=== PATIENT | male | born 1955 | race Caucasian/White ===

== ENCOUNTER 2022-11-29 18:20 | Emergency (ER) | payer MEDICARE, BC, SELFPAY ==
--- NOTE | ~2022-11-29 | CT_ITS ---
EXAMINATION: CT abdomen pelvis w con DATE: 11/29/2022 22:41 INDICATION: Abdominal pain. Constipation. TECHNIQUE: Computed tomography (CT) of the abdomen and pelvis was performed with 100 mL Omnipaque 350 intravenous contrast. Automated exposure control and iterative reconstruction technique were employe d. The dose-length product was 1431.77 mGy-cm. COMPARISON: None. FINDINGS: The visualized portions of the lung bases demonstrate mild atelectasis. Calcified bilateral lung nodules are consistent with old granulomatous disease. No pleural effusion. The heart size is n ormal. No pericardial effusion. Calcifications in the liver and spleen are consistent with old granul omatous disease. The gallbladder, pancreas, and adrenal glands are normal. There is a 2 mm stone in r ight kidney. Left kidney is normal. The prostate is mildly enlarged. There is a left inguinal hernia containing fat. There are no dilated loops of bowel. There is a small volume of stool in the colon. T he appendix is normal. There is moderate lumbar spondylosis. IMPRESSION: 1. Left inguinal hernia containing fat. Reviewed, dictated and finalized at location A.
[2022-11-29 18:24] VITALS: BP 139/62; PULSE 78; RESP 14; TEMP 36.8; O2SAT 99
[2022-11-29 20:14] VITALS: PULSE 64; RESP 18; TEMP 37.1; O2SAT 98
[2022-11-29 20:15] VITALS: BP 132/68; O2SAT 98
[2022-11-29 21:11] VITALS: BP 122/64; O2SAT 97
[2022-11-29 21:58] LABS: Basophils Percent Auto 0.3 % (0.2-1.2); Eosinophils Absolute Auto 0.2 K/mm3 (0-0.3); Eosinophils Percent Auto 4.4 % (0-4.4); Hematocrit 40.5 % (42.0-52.0); Hemoglobin 13.3 g/dL (14.0-18.0); Immature Granulocyte Absolute 0.01 K/mm3 (0.00-0.031); Immature Granulocyte Percent A 0.3 % (0-0.5); Lymphocytes Absolute Auto 0.96 K/mm3 (0.9-3.2); Lymphocytes Percent Auto 28.2 % (18.3-44.2); Mean Corpuscular HGB Conc 32.8 g/dl (32-36); Mean Corpuscular Hemoglobin 31.5 pg (26-34); Mean Platelet Volume 9.5 fl (7.4-10.4); Monocytes Absolute Auto 0.4 K/mm3 (0.1-0.6); Monocytes Percent Auto 12.4 % (2.6-8.5); Neutrophils Absolute Auto 1.9 K/mm3 (1.3-6.7); Neutrophils Percent Auto 54.4 % (45.5-73.1); Platelet Count Result 118 k/mm3 (150-375); Red Blood Count 4.22 M/mm3 (4.6-6.20); Red Cell Distribution Width 12.8 % (11.5-14.5); White Blood Count 3.4 K/mm3 (4.5-10.0)
[2022-11-29 21:59] LABS: Appearance Urine Clear (Clear); Bilirubin Urine Negative (Negative); Blood Urine Negative (Negative); Color Urine Yellow (Yellow); Glucose Urine UA Negative (Negative); Ketones Urine Trace mg/dL (Negative); Leukocyte Esterase Ur Negative LEU/UL (Negative); Nitrate Urine Negative (Negative); Protein Urine Negative (Negative); pH Urine 6.5 (5.0-9.0)
[2022-11-29 22:10] LABS: Add Urine Microscopic? NO
[2022-11-29 22:11] LABS: Lactic Acid Reflex 0.6 mmol/L (0.7-2.0)
[2022-11-29 22:13] LABS: Alanine Aminotransferase 17 U/L (6-50); Albumin Level 3.9 g/dL (3.5-5.1); Alkaline Phosphatase 58 U/L (38-126); Anion Gap 5 mmol/L (8-16); Aspartate Amino Transferase 27 U/L (17-59); Bilirubin,Total 0.9 mg/dL (0.2-1.3); Blood Urea Nitrogen 17 mg/dL (9-20); Calcium 8.6 mg/dL (8.4-10.2); Carbon Dioxide 31 mmol/L (22-30); Chloride 101 mmol/L (98-107); Estimated CRCL calculation 99 ml/min; Estimated Glomerular Filt Rate > 60; Glucose 113 mg/dL (65-110); Lipase 123 U/L (23-300); Magnesium 2.1 mg/dL (1.6-2.3); Potassium 3.8 mmol/L (3.4-5.0); Sodium 137 mmol/L (137-145)
--- NOTE | 2022-11-30 01:37 | ED.GENADULT ---
HPI - General Adult General Chief complaint: Unspecified Stated complaint: constipation Time Seen by Provider: 11/29/22 20:47 History of Present Illness HPI narrative: Patient 67-year-old gentleman who presents the emergency department with chief complaint of abdominal pain. The patient reports that since the he has been having constipation has also had some generalized malaise and sinus congestion. Patient states that he is done multiple things to try to have a bowel movement still passing gas but reports that he is just not having a good satisfying bowel movement. Patient reports his generalized discomfort throughout his abdomen. Related Data Allergies Allergy/AdvReac Type Severity Reaction Status Date / Time No Known Allergies Allergy Verified 11/29/22 20:18 Review of Systems Review of Systems: A 10 system review of systems was completed on the patient and is negative except for what is stated in the HPI. Nursing and ancillary documentation was reviewed. Exam Narrative: GENERAL: Well-appearing, well-nourished, and in no acute distress. HEAD: Normocephalic, atraumatic. EYES: PERRLA and EOMI. ENT: Nares clear, no rhinorrhea or epistaxis. Mucous membranes moist. NECK: Supple. CHEST: Clear to auscultation. No respiratory distress. HEART: Regular rate and rhythm. No murmur heard. Normal peripheral pulses. ABDOMEN: Soft, diffusely tender to palpation, nondistended, normal active bowel sounds. EXTREMITIES: Normal range of motion. No edema. SKIN: Warm, dry, no rash. NEURO: No focal deficits. Alert and oriented x3. PSYCH: Normal mood and affect. Course Vital Signs Vital signs: Vital Signs Temperature 36.8 C 11/29/22 18:24 Pulse Rate 78 11/29/22 18:24 Respiratory Rate 14 11/29/22 18:24 Blood Pressure 139/62 11/29/22 18:24 Pulse Oximetry 99 11/29/22 18:24 Oxygen Delivery Room Air 11/29/22 18:24 Temperature 37.1 C 11/29/22 20:14 Pulse Rate 64 11/29/22 20:14 Respiratory Rate 18 11/29/22 20:14 Blood Pressure 122/64 11/29/22 21:11 Pulse Oximetry 97 11/29/22 21:11 Oxygen Delivery Room Air 11/29/22 18:24 Medical Decision Making MDM Narrative Medical decision making narrative: Differential diagnosis includes bowel obstruction, constipation, colitis, diverticulitis, viral syndrome. Laboratory studies were obtained which showed a white blood cell count of 3.4 hemoglobin was 13.3 electrolytes were within normal limits lactic acid was 0.6 liver enzymes were normal lipase was normal as well urinalysis that showed trace ketones no evidence of UTI. CT scan of the abdomen pelvis showed no acute abnormality no bowel obstruction no evidence of constipation. Vital Signs Vital Signs: Vital Signs Temperature 36.8 C 11/29/22 18:24 Pulse Rate 78 11/29/22 18:24 Respiratory Rate 14 11/29/22 18:24 Blood Pressure 139/62 11/29/22 18:24 Pulse Oximetry 99 11/29/22 18:24 Oxygen Delivery Room Air 11/29/22 18:24 Temperature 37.1 C 11/29/22 20:14 Pulse Rate 64 11/29/22 20:14 Respiratory Rate 18 11/29/22 20:14 Blood Pressure 122/64 11/29/22 21:11 Pulse Oximetry 97 11/29/22 21:11 Oxygen Delivery Room Air 11/29/22 18:24 Lab Data 11/29/22 21:51 11/29/22 21:51 Labs: Lab Results 11/29/22 Range/Units 21:51 WBC 3.4 L (4.5-10.0) K/mm3 RBC 4.22 L (4.6-6.20) M/mm3 Hgb 13.3 L (14.0-18.0) g/dL Hct 40.5 L (42.0-52.0) % MCV 96.0 (80-100) fl MCH 31.5 (26-34) pg MCHC 32.8 (32-36) g/dl RDW 12.8 (11.5-14.5) % Plt Count 118 L (150-375) k/mm3 MPV 9.5 (7.4-10.4) fl Immature Gran % (Auto) 0.3 (0-0.5) % Neut % (Auto) 54.4 (45.5-73.1) % Lymph % (Auto) 28.2 (18.3-44.2) % P[place] % (Auto) 12.4 H (2.6-8.5) % Eos % (Auto) 4.4 (0-4.4) % Baso % (Auto) 0.3 (0.2-1.2) % Lymph # (Auto) 0.96 (0.9-3.2) K/mm3 Pinal # (Auto) 0.4 (0.1-0.6) K/mm3 Eos # (Auto) 0.2 (0-
== END 2022-11-30 02:04 | disposition home or self-care (01) ==
PROVIDERS: Emergency Provider Emergency Medicine
DX: R10.84 Generalized abdominal pain (principal); K40.90 Unilateral inguinal hernia, without obstruction or gangrene, not specified as recurrent
CPT/HCPCS: 36415; 74177; 80053; 81003; 83605; 83690; 83735; 85025; 95864; 99284; Q9967

== ENCOUNTER 2023-05-04 08:57 | Outpatient (CLI) | payer MEDICARE, SELFPAY ==
--- NOTE | 2023-05-04 11:00 | NEURO_ITS ---
Impression: # Mildly non-insulin diabetic complains of numbness of hands. # Mild Carpal Tunnel Syndrome, left more than right. # No ulnar neuropathy. # Needle/EMG exam mildly neurogenic in left APB. Nerve Conduction Studies Anti Sensory Summary Table Stim Site NR Peak (ms) P-T Amp (?V) Site1 Site2 Delta-P (ms) Dist (cm) Jose (m/s) Left Median Anti Sensory (2-3nd Digit) Wrist 4.7 56.9 Wrist 2-3nd Digit 4.7 14.0 30 Wrist 4.8 10.7 Wrist 2-3nd Digit 4.7 14.0 30 Right Median Anti Sensory (2-3nd Digit) Wrist 3.6 45.3 Wrist 2-3nd Digit 3.6 14.0 39 Wrist 3.5 8.8 Wrist 2-3nd Digit 3.6 14.0 39 Left Radial Anti Sensory (Base 1st Digit) Wrist 3.0 23.7 Wrist Base 1st Digit 3.0 0.0 Right Radial Anti Sensory (Base 1st Digit) Wrist 2.4 12.2 Wrist Base 1st Digit 2.4 0.0 Left Ulnar Anti Sensory (5th Digit) Wrist 2.3 13.8 Wrist 5th Digit 2.3 14.0 61 Right Ulnar Anti Sensory (5th Digit) Wrist 2.6 12.1 Wrist 5th Digit 2.6 14.0 54 Motor Summary Table Stim Site NR Onset (ms) O-P Amp (mV) Site1 Site2 Delta-0 (ms) Dist (cm) Jose (m/s) Left Median Motor (Abd Poll Brev) Wrist 4.4 0.9 Elbow Wrist 5.9 30.0 51 Elbow 10.3 1.1 Right Median Motor (Abd Poll Brev) Wrist 4.0 1.5 Elbow Wrist 5.9 32.0 54 Elbow 9.9 2.7 Left Ulnar Motor (Abd Dig Minimi) Wrist 2.3 5.3 A Elbow Wrist 6.3 34.0 54 A Elbow 8.6 3.3 Right Ulnar Motor (Abd Dig Minimi) Wrist 2.3 5.9 A Elbow Wrist 6.4 34.0 53 A Elbow 8.7 4.3 F Wave Studies NR F-Lat (ms) L-R F-Lat (ms) Left Median (Mrkrs) (Abd Poll Brev) 29.59 0.58 Right Median (Mrkrs) (Abd Poll Brev) 30.18 0.58 Left Ulnar (Mrkrs) (Abd Dig Min) 30.70 0.47 Right Ulnar (Mrkrs) (Abd Dig Min) 30.23 0.47 EMG Side Muscle Nerve Root Ins Act Fibs Amp Dur Recrt Comment Right 1stDorInt Ulnar C8-T1 Nml Nml Nml Nml Nml Right Ext Indicis Radial (Post Int) C7-8 Nml Nml Nml Nml Nml Right Ext Digitorum Radial (Post Int) C7-8 Nml Nml Nml Nml Nml Right BrachioRad Radial C5-6 Nml Nml Nml Nml Nml Right PronatorTeres Median C6-7 Nml Nml Nml Nml Nml Right Abd Poll Brev Median C8-T1 Nml Nml Nml Nml Nml Left 1stDorInt Ulnar C8-T1 Nml Nml Nml Nml Nml Left Ext Indicis Radial (Post Int) C7-8 Nml Nml Nml Nml Nml Left Ext Digitorum Radial (Post Int) C7-8 Nml Nml Nml Nml Nml Left BrachioRad Radial C5-6 Nml Nml Nml Nml Nml Left PronatorTeres Median C6-7 Nml Nml Nml Nml Nml Left Abd Poll Brev Median C8-T1 Nml Nml Nml >12ms Reduced MTDD
== END 2023-05-04 08:58 | disposition home or self-care (01) ==
LOC: ANHNEURO 08:57
PROVIDERS: PCP Family Medicine; Visit Provider Family Medicine
DX: G56.03 Carpal tunnel syndrome, bilateral upper limbs (principal); R20.0 Anesthesia of skin
CPT/HCPCS: 95886; 95911

== ENCOUNTER 2023-05-21 10:00 | Outpatient (RCR) | payer MEDICARE, BC, SELFPAY ==
--- NOTE | 2023-04-14 14:39 | OPREHPOC ---
Outpatient Therapy Plan of Care This is a Multidisciplinary Plan of Care that may contain components documented by all disciplines (PT, OT, and ST.) PT Problem 1 PT Problem #1 Knowledge Deficit PT Goal 1 Goal 1* indep with HEP PT Problem 2 PT Problem #2 Pain PT Goal 1 Goal 1* pt report pain L shoulder at worst of 2/10 2* pt report NO numbness of L hand 3* Quick DASH self assessment of 10% limitation in activity PT Problem 3 PT Problem #3 Impaired Flexibility PT Goal 1 Goal increase flexibility of L shoulder, to improve posture and positioning of GH joint: 1* active IR-reach behind back, palm to waist 2*increase anterior shoulder/pec length: standing with back to wall- mid L GH joint to wall distance of 4 & 1/2 PT Problem 4 PT Problem #4 Impaired Strength PT Goal 1 Goal increase L scapular-thoracic strength to improve position of GH joint: 1* pt perform 20 reps of standing and mat strengthening exercises 2* pt maintain good shoulder position with exercises
--- NOTE | 2023-04-14 14:39 | PTOPEVAL1 ---
Assessment and note entered by Anju Perales, PT Evaluation Information Assessment Status Evaluation Diagnosis L shoulder pain Onset about 1 year Subjective Information gradual increase in shoulder pain, about 2 months ago new L hand numbness; L handed; no testing or imaging to shoulder; ACTIVITY: retired; recently moved to this area; active lifestyle; Reported Pain Level Pain Score Self Report Additional Pain Score Comments pain range in the past week 1-4/10; numbness of entire hand ~ 10% day; anterior and posterior shoulder pain--achy feeling; is L handed. increase pain: use of L arm, lifting decrease pain: rest/not use arm is not taking any pain meds for shoulder; is not using heat/ice- instruct on PRN use 10-15 min; sleeping is generally ok; Assessment PT Clinical Summary Juan R has the diagnosis of L shoulder pain. He reports gradual increase in pain and recently L hand numbness. Self assessment Quick DASH score of 20% limitation in activity level. He is able to perform all of his usual tasks, with pain increase and sleeping is OK. 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 Skilled PT services are indicated for treatment of shoulder impingement syndrome L, with modalities to decrease pain, therapeutic exercises to increase flexibility and strength of scapula/ thoracic musculature with education for home exercises and posture correction. Monitor neck pain. Plan of Care Interventions Electrical Stimulation,Hot Pack/Cold Pack,Manual Therapy,Neuro Re-education,Patient Education,Therapeutic Activities,Therapeutic Exercise,Ultrasound,Other Other Interventions taping, IASTM, dry needling PT Services Indicated Yes Treatment Frequency and 1-2x/ wk for 5 weeks Duration These treatments will address the objective and functional d
--- NOTE | 2023-04-14 14:40 | PCPTNOTE ---
during evaluation today, pt reports he will be out of town from Apr 20-.
--- NOTE | 2023-04-14 14:45 | OPREHPOC ---
Outpatient Therapy Plan of Care This is a Multidisciplinary Plan of Care that may contain components documented by all disciplines (PT, OT, and ST.) PT Problem 1 PT Problem #1 Knowledge Deficit PT Goal 1 Goal 1* indep with HEP PT Problem 2 PT Problem #2 Pain PT Goal 1 Goal 1* pt report pain L shoulder at worst of 2/10 2* pt report NO numbness of L hand 3* Quick DASH self assessment of 10% limitation in activity PT Problem 3 PT Problem #3 Impaired Flexibility PT Goal 1 Goal increase flexiblity of L shoulder, to improve posture and positioning of GH joint: 1* active IR-reach behind back, palm to waist 2*increase anterior shoulder/pec length: standing with back to wall- mid L GH joint to wall distance of 4 & 1/2 PT Problem 4 PT Problem #4 Impaired Strength PT Goal 1 Goal increase L scapular-thoracic strength to improve position of GH joint: 1* pt perform 20 reps of standing and mat strengthening exercises 2* pt maintain good shoulder position with exercises
--- NOTE | 2023-04-14 14:45 | PTOPEVAL1 ---
Assessment and note entered by Anju Perales, PT Evaluation Information Assessment Status Evaluation Diagnosis L shoulder pain Onset about 1 year Subjective Information gradual increase in shoulder pain, about 2 months ago new L hand numbness; L handed; no testing or imaging to shoulder; ACTIVITY: retired; recently moved to this area; active lifestyle; Reported Pain Level Pain Score 1: Self Report Additional Pain Score Comments pain range in the past week 1-4/10; numbness of entire hand ~ 10% day; anterior and posterior shoulder pain--achy feeling; is L handed. increase pain: use of L arm, lifting decrease pain: rest/not use arm is not taking any pain meds for shoulder; is not using heat/ice- instruct on PRN use 10-15 min; sleeping is generally ok; Assessment PT Clinical Summary Juan R has the diagnosis of L shoulder pain. He reports gradual increase in pain and recently L hand numbness. Self assessment Quick DASH score of 20% limitation in activity level. He is able to perform all of his usual tasks, with pain increase and sleeping is OK. 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 Skilled PT services are indicated for treatment of shoulder impingement syndrome L, with modalities to decrease pain, therapeutic exercises to increase flexibility and strength of scapula/ thoracic musculature with education for home exercises and posture correction. Plan of Care Interventions Electrical Stimulation,Hot Pack/Cold Pack,Manual Therapy,Neuro Re-education,Patient Education,Therapeutic Activities,Therapeutic Exercise,Ultrasound,Other Other Interventions taping, IASTM, dry needling PT Services Indicated Yes Treatment Frequency and 1-2x/ wk for 5 weeks Duration These treatments will address the objective and functional deficits as d
--- NOTE | 2023-05-21 10:47 | PTOPDC ---
Assessment and note entered by Anju Perales, PT Evaluation Information Assessment Status Discharge Diagnosis L shoulder pain Onset about 1 year Subjective Information numbness is less in L hand; little better with flexibility of shoulder; Reported Pain Level Pain Score Self Report Additional Pain Score Comments pt report pain range of 0-2/10 in the past week of shoulder; L whole hand numb about one hour total /day; L top of shoulder, upper traps is achy; is doing everything at home; Assessment PT Clinical Summary Juan R has received 8 PT sessions. Compared to the initial evaluation: pain range from 1-4/10 to 0-2/10; less numbness in L hand; Quick DASH self assessment from 20% to 14% limitation in activity level; increase L shoulder IR active ROM & wall standing distance mid GH to wall/improved positioning; increase strength of L shoulder- scapula complex; education completed for HEP and posture. The goals were partially met. Discharge PT services. He is to continue with his HEP. Plan of Care PT Services Indicated No
== END 2023-05-25 07:16 | disposition home or self-care (01) ==
LOC: ANHPT 10:00
PROVIDERS: PCP Family Medicine; Visit Provider Family Medicine
DX: M25.512 Pain in left shoulder (principal)
CPT/HCPCS: 97110; 97112; 97161; 97530

== ENCOUNTER 2023-05-25 01:50 | Day surgery (SDC) | payer MEDICARE, SELFPAY ==
--- NOTE | 2023-05-21 10:22 | SUR.PREOP ---
Patient called regarding upcoming procedure. Reviewed preop instructions, appointment times, and procedure prep.
[2023-05-21 13:21] VITALS: BMI 37.0
[2023-05-25 10:21] VITALS: BP 177/77; PULSE 65; RESP 17; TEMP 36.2; O2SAT 98; BMI 38.5
[2023-05-25] MEDS: LACTATED RINGERS 1,000 ML 150 ML IV CONT (10:24)
--- NOTE | 2023-05-25 10:33 | WPDANESEPPF ---
Anes - Initial Pre Proc Eval Procedure: Operation Date: 05/25/23 11:30 Proposed Procedures p Colonoscopy - Solis Plummer MD Date/Time: 05/25/23 10:33 Surgeon: Solis Plummer MD Pre Op Diagnosis: hx colon polyps Patient Data Age: 67 Gender: M Height: 1.85 m Weight: 132.7 kg Last Vital Signs Temp 97.2 F L 05/25/23 10:21 Pulse 65 05/25/23 10:21 Resp 17 05/25/23 10:21 BP 177/77 H 05/25/23 10:21 Pulse Ox 98 05/25/23 10:21 O2 Del Method Room Air 05/25/23 10:21 Allergies Allergy/AdvReac Type Severity Reaction Status Date / Time No Known Allergies Allergy Verified 05/25/23 10:18 Home Medications Medication Instructions Recorded Confirmed Type dicyclomine 20 mg tablet 20 mg PO QID PRN abdominal 11/30/22 05/25/23 Rx discomfort #20 tabs atorvastatin 20 mg tablet 20 mg PO DAILY #90 tabs 03/30/23 05/25/23 Rx losartan 25 mg tablet 25 mg PO DAILY #90 tabs 03/30/23 05/25/23 Rx sildenafil 100 mg tablet 100 mg PO DAILY PRN sexual 03/30/23 05/25/23 Rx activity #30 tabs tamsulosin 0.4 mg capsule 0.4 mg PO DAILY #90 caps 03/30/23 05/25/23 Rx tiotropium bromide 1.25 2 puff inhalation DAILY 03/30/23 05/25/23 History mcg/actuation mist for inhalation (Spiriva Respimat) One-A-Day Men's 50 Plus 1 tab-cap PO DAILY 05/21/23 05/25/23 History docusate sodium 50 mg capsule 50 mg PO DAILY 05/21/23 05/25/23 History Patient hx anesthesia problems: none Family hx anesthesia problems: none Results Review: All pre-operative results and documents have been reviewed as part of the pre-operative evaluation. [facility], [facility] Past Medical History Medical History (Updated 04/06/23 @ 22:33 by Wayne Angeles MD) BMI 40.0-44.9, adult Changing skin lesion Colon polyp COPD (chronic obstructive pulmonary disease) Diastasis recti Erectile dysfunction Essential hypertension Hemorrhoids Left ankle swelling Mixed hyperlipidemia Nasal bone fx-closed Numbness of left hand Onychomycosis ISMAEL (obstructive sleep apnea) Shoulder pain, left Family History Family History Father Rheumatic fever Scarlet fever Alcoholism Mother Heart disease Sibling Alcoholism Tobacco abuse Heart disease Social History Social History Smoking status: Never smoker Second hand tobacco smoke exposure: Yes Alcohol intake: current Substance use: former Substance use type: does not use Lack of Transportation: No Lack of Food: Never True Current Housing: I Have Housing Concerned About Future Housing: No Difficulty Paying Gas/Electric Bills: No Difficulty Paying for Meds: No Currently Unemployed: No Education: Bachelor's Degree Difficulty w/ Childcare or Family Care: No Living arrangements: with family 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 Informed Consent: The patient's anesthetic plan and its attendant risks and benefits were discussed with the patient/family/POA. Questions were solicited and answers provided to the satisfaction of the patient/family/POA.
--- NOTE | 2023-05-25 10:59 | PM.HPGS ---
History of Present Illness History of Present Illness Consent: Risks, benefits, and alternatives have been discussed and questions answered. Patient agrees to proceed with procedure. Chief complaint: hx colon polyps Narrative: Travis Boggs is a 67 year old male here for history of colon polyps, last colonoscopy about 6 years ago Review of Systems Constitutional: Constitutional: Denies headache(s) and Denies weakness Eyes: Eyes: Denies blurry vision ENT: Reports Normal hearing present, Denies headache(s) and Denies neck pain Cardiovascular: Cardiovascular: Denies chest pain and Denies dyspnea Respiratory: Respiratory: Denies dyspnea Gastrointestinal: Gastrointestinal: Reports no additional gastrointestinal complaints Genitourinary: Genitourinary: Denies dysuria Musculoskeletal: Musculoskeletal: Denies neck pain Integumentary/Breasts: Skin/Breast: Denies dry skin Neurologic: Reports Normal hearing present, Denies headache(s) and Denies weakness Psychiatric: Psychiatric: Denies anxiety Endocrine: Endocrine: Denies change in body appearance Hematologic/Lymphatic: Hematologic/Lymphatic: Denies easy bleeding Allergic/Immunologic: Allergic/Immunologic: Denies urticaria PMFSH Past Medical History Medical History (Updated 04/06/23 @ 22:33 by Wayne Angeles MD) BMI 40.0-44.9, adult Changing skin lesion Colon polyp COPD (chronic obstructive pulmonary disease) Diastasis recti Erectile dysfunction Essential hypertension Hemorrhoids Left ankle swelling Mixed hyperlipidemia Nasal bone fx-closed Numbness of left hand Onychomycosis ISMAEL (obstructive sleep apnea) Shoulder pain, left Family History Family History Father Rheumatic fever Scarlet fever Alcoholism Mother Heart disease Sibling Alcoholism Tobacco abuse Heart disease Social History Social History Smoking status: Never smoker Second hand tobacco smoke exposure: Yes Alcohol intake: current Substance use: former Substance use type: does not use Lack of Transportation: No Lack of Food: Never True Current Housing: I Have Housing Concerned About Future Housing: No Difficulty Paying Gas/Electric Bills: No Difficulty Paying for Meds: No Currently Unemployed: No Education: Bachelor's Degree Difficulty w/ Childcare or Family Care: No Living arrangements: with family 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 Gender identity (if verbalized by the patient): Male Spiritual care concerns: No Meds Home Medications and Allergies Home Medications Medication Instructions Recorded Confirmed Type dicyclomine 20 mg tablet 20 mg PO QID PRN abdominal 11/30/22 05/25/23 Rx discomfort #20 tabs atorvastatin 20 mg tablet 20 mg PO DAILY #90 tabs 03/30/23 05/25/23 Rx losartan 25 mg tablet 25 mg PO DAILY #90 tabs 03/30/23 05/25/23 Rx sildenafil 100 mg tablet 100 mg PO DAILY PRN sexual 03/30/23 05/25/23 Rx activity #30 tabs tamsulosin 0.4 mg capsule 0.4 mg PO DAILY #90 caps 03/30/23 05/25/23 Rx tiotropium bromide 1.25 2 puff inhalation DAILY 03/30/23 05/25/23 History mcg/actuation mist for inhalation (Spiriva Respimat) One-A-Day Men's 50 Plus 1 tab-cap PO DAILY 05/21/23 05/25/23 History docusate sodium 50 mg capsule 50 mg PO DAILY 05/21/23 05/25/23 History Allergies Allergy/AdvReac Type Severity Reaction Status Date / Time No Known Allergies Allergy Verified 05/25/23 10:18 Vital Signs Vital Signs - 24 hr 05/25/23 10:21 Temperature 97.2 F L Pulse Rate 65 Respiratory Rate 17 Blood Pressure 177/77 H Pulse Oximetry 98 Oxygen Delivery Room Air Exam Const: General: comfortable and no acute distress HENMT: Face/Nose/Sinus: Normal nares present Eyes: General: appearance normal, both eyes
[2023-05-25 11:17] VITALS: BP 111/60; PULSE 63; RESP 22; O2SAT 95
[2023-05-25 11:27] VITALS: BP 120/71; PULSE 64; RESP 19; O2SAT 95
[2023-05-25 11:37] VITALS: BP 130/76; PULSE 66; RESP 21; O2SAT 96
== END 2023-05-25 11:46 | disposition home or self-care (01) ==
PROVIDERS: PCP Family Medicine; Visit Provider Internal Medicine Gastroenterology
PROC: 0DJD8ZZ Inspection of Lower Intestinal Tract, Via Natural or Artificial Opening Endoscopic (ICD-10-PCS; CPT 45378; principal; 2023-05-25 11:30)
DX: Z12.11 Encounter for screening for malignant neoplasm of colon (principal); Z86.010 Personal history of colon polyps; J44.9 Chronic obstructive pulmonary disease, unspecified; I10 Essential (primary) hypertension; E78.2 Mixed hyperlipidemia; G47.33 Obstructive sleep apnea (adult) (pediatric); Z79.51 Long term (current) use of inhaled steroids
CPT/HCPCS: G0105; J2704; J7120

== ENCOUNTER 2023-08-05 09:00 | Outpatient (CLI) | payer MEDICARE, SELFPAY ==
--- NOTE | 2023-08-05 14:16 | WPDPFTINT ---
PFT Procedure Performed PFT Procedure Performed Spirometry with Pre/Post Bronchodilator Plethysmography (Lung Vol) Diffusing Cap (DLCO) Flow Vol Loop PFT Interpretation Lung volumes were measured with the body plethysmography method. Lung volumes are unremarkable. Spirometry showed normal expiratory flow rates and a normal FEV1 to FVC ratio 70%. Following administration of a bronchodilator there was significant increase in the FEV1. Lung diffusion capacity is within the normal range at 100% predicted. The flow volume loop is unremarkable. Impression: Spirometry, lung volumes, and lung diffusion capacity all within the normal range.
--- NOTE | 2023-08-05 14:18 | WPDSIXMINUTE ---
Six Minute Walk Procedure Procedure Performed Pulmonary Stress Test (6 min walk) Six Minute Walk Six Minute Walk: This 6 minute walk test was carried out with the patient breathing room air. The baseline oxyhemoglobin saturation was 97%. The patient walked 609 m with no stops during testing. During the walk the oxyhemoglobin saturation remained in the range of 94% to 97%. Impression: No evidence of oxyhemoglobin desaturation on this testing.
== END 2023-08-05 09:01 | disposition home or self-care (01) ==
LOC: ANHPFT 09:01
PROVIDERS: PCP Family Medicine; Visit Provider Physician Assistant
DX: R06.09 Other forms of dyspnea (principal)
CPT/HCPCS: 94060; 94618; 94726; 94729

== ENCOUNTER 2023-09-29 13:25 | Outpatient (CLI) | payer MEDICARE, SELFPAY ==
--- NOTE | 2023-09-29 13:29 | ECHO_ITS ---
Patient Info Name: Travis Boggs Age: 68 years : 1955 Gender: Male Ht: 73 in Wt: 295 lbs BSA: 2.68 m2 HR: 73 bpm BP: 140 / 73 mmHg Technical Quality: Good Exam Date: 09/29/2023 1:40 PM Exam Location: Echo Lab Patient Status: Outpatient Admit Date: 09/29/2023 Staff Ordering Physician: Willow Diaz PA-C Condenser Operator: Emily Garay RDCS Attending Provider: Willow Diaz PA-C Exam Type: CA echo doppler color flow Study Info Indications R06.09 - Other forms of dyspnea Complete two-dimensional, color flow and Doppler transthoracic echocardiogram is performed. Summary 1. Complete two-dimensional, color flow and Doppler transthoracic echocardiogram is performed. 2. Left ventricular chamber dimension is normal. 3. Left ventricular systolic function is normal, estimated at 65-70%. 4. The left ventricular diastolic function is grade III diastolic dysfunction. 5. E/e' 14 is mildly elevated. 6. There is mild aortic valve sclerosis. 7. No pulmonary hypertension, estimated pulmonary arterial systolic pressure is 24 mmHg. Left Ventricle E/e' 14 is mildly elevated. Left ventricular chamber dimension is normal. Left ventricular systolic function is normal, estimated at 65-70%. The left ventricular diastolic function is grade III diastolic dysfunction. Right Ventricle Right ventricular systolic function is normal and with normal TAPSE 2.7 cm. Right ventricular chamber dimension is normal. Left Atria Left atrial chamber dimension is normal. Right Atria Right atrial chamber dimension is normal. Aortic Valve The aortic valve is trileaflet. There is mild aortic valve sclerosis. There is no aortic valve stenosis. There is no aortic valve regurgitation. Pulmonic Valve There is no pulmonic regurgitation. Mitral Valve There is no mitral valve stenosis. There is no mitral valve regurgitation. Tricuspid Valve There is no tricuspid valve regurgitation. No pulmonary hypertension, estimated pulmonary arterial systolic pressure is 24 mmHg. Pericardium/Pleural There is no pericardial effusion. Inferior Vena Cava Normal inferior vena cava with >50% collapse upon inspiration consistent with normal right atrial pressure, 5 mmHg. Aorta The aortic root size at the sinus of Valsalva is normal. Left Ventricular Outflow Tract Name Value Normal LVOT 2D LVOT Diameter 2.0 cm LVOT Doppler LVOT Peak Gradient 5 mmHg LVOT Mean Gradient 3 mmHg LVOT VTI 24 cm LVOT VTI/AV VTI Ratio 0.7 LVOT Stroke Volume 73 ml LVOT CO 4.9 l/min LVOT CI 1.8 l/min/m2 Pulmonic Valve Name Value Normal RVOT Doppler RVOT Peak Gradient 3 mmHg PV Doppler
== END 2023-09-29 13:26 | disposition home or self-care (01) ==
LOC: ANHCARD 13:26
PROVIDERS: PCP Family Medicine; Visit Provider Physician Assistant
DX: R06.09 Other forms of dyspnea (principal); I35.8 Other nonrheumatic aortic valve disorders
CPT/HCPCS: 93306

== ENCOUNTER 2024-03-06 14:01 | Outpatient (CLI) | payer MEDICARE, SELFPAY ==
--- NOTE | ~2024-03-06 | XR_ITS ---
Clinical Indication: Bronchitis PA and lateral views of the chest: Comparison: None Findings: Calcified right basilar granuloma noted. The lungs are otherwise clear, without evidence of focal consolidation or pleural effusion. Calcified right hilar lymph node present. Cardiomediastinal silhouette is within normal limits. Bones and soft tissues are unremarkable. Impression: No acute abnormality. Evidence of prior granulomatous disease. Reviewed, dictated and finalized at location . Impression: No acute abnormality. Evidence of prior granulomatous disease.
== END 2024-03-06 14:02 ==
LOC: MICIMG 14:03
PROVIDERS: PCP Family Medicine; Visit Provider Family Medicine
DX: J40 Bronchitis, not specified as acute or chronic (principal)
CPT/HCPCS: 71046

== ENCOUNTER 2024-03-31 07:54 | Outpatient (CLI) | payer MEDICARE, SELFPAY | END 2024-03-31 07:55 | disposition home or self-care (01) | LOC: ANHAUDIO 07:54 | PROVIDERS: PCP Family Medicine; Visit Provider Family Medicine | DX: H90.3 Sensorineural hearing loss, bilateral (principal) | CPT/HCPCS: 92557; 92567 ==

== ENCOUNTER 2024-09-05 09:29 | Outpatient (CLI) | payer MEDICARE, SELFPAY ==
--- NOTE | ~2024-09-05 | XR_ITS ---
EXAMINATION: XR ankle RT min 3V DATE: 09/05/2024 09:58 INDICATION: Lateral right ankle pain. TECHNIQUE: 4 views of right ankle including weight-bearing views were obtained. COMPARISON: None. FINDINGS: Pes planus is noted. No fracture. There is mild osteoarthritis of talonavicular joint. Ther e are enthesophytes at the posterior and plantar aspects of calcaneal tuberosity. IMPRESSION: 1. Pes planus. 2. Mild osteoarthritis of talonavicular joint. Reviewed, dictated and finalized at location A. ER CONTROLLED ATMOSPHERIC FURNACE
== END 2024-09-05 09:30 | disposition home or self-care (01) ==
PROVIDERS: PCP Family Medicine; Visit Provider Family Medicine
DX: M21.41 Flat foot [pes planus] (acquired), right foot (principal); M19.071 Primary osteoarthritis, right ankle and foot
CPT/HCPCS: 73610

== ENCOUNTER 2024-10-27 09:17 | Outpatient (CLI) | payer MEDICARE, SELFPAY ==
--- NOTE | ~2024-10-27 | CT_ITS ---
CT of the Abdomen and Pelvis: Indication: Hematuria Technique: 2.5 mm axial scans were obtained through the abdomen and pelvis prior to and following in travenous administration of 130 cc of Omnipaque 350. Dose reduction technique was used on this scan b y utilizing automated exposure control and iterative reconstruction technique. The dose-length produc t (DLP) was 3052.05 mGy-cm. Findings: Scans through the lung bases are unremarkable. The liver, pancreas, gallbladder, adrenals and left kidney are within normal limits. 2 mm nonobstruct ing right renal stone present. Calcified splenic granulomas are present. No evidence of aortic aneury sm. No lymphadenopathy. No bowel obstruction or bowel wall thickening. There is minimal haziness in the central mesentery wit h small shotty lymph nodes. Images through the pelvis were performed. There is probable lobulated mass along the left side of the urinary bladder posteriorly measuring up to approximately 2.4 cm in maximum length. Prostate gland m inimally enlarged. No ascites. Impression: Suspected 2.4 cm urinary bladder mass along the posterior left side. Cystoscopy recommended, as bladd er carcinoma is suspected until proven otherwise. 2 mm nonobstructing right renal stone. Probable minimal mesenteric panniculitis. Reviewed, dictated and finalized at location M. Impression: Suspected 2.4 cm urinary bladder mass along the posterior left side. Cystoscopy recommended, as bladder carcinoma is suspected until proven otherwise. 2 mm nonobstructing right renal stone. Probable minimal mesenteric panniculitis.
[2024-10-27 10:25] LABS: Estimated Glomerular Filt Rate > 60
== END 2024-10-27 09:18 | disposition home or self-care (01) ==
PROVIDERS: PCP Family Medicine; Visit Provider Urology
DX: N20.0 Calculus of kidney (principal); R31.9 Hematuria, unspecified
CPT/HCPCS: 36415; 74178; 82565; Q9967

== ENCOUNTER 2024-11-08 10:00 | Outpatient (RCR) | payer MEDICARE, SELFPAY ==
--- NOTE | 2024-10-05 11:37 | OPREHPOC ---
Outpatient Therapy Plan of Care This is a Multidisciplinary Plan of Care that may contain components documented by all disciplines (PT, OT, and ST.) PT Problem 1 PT Problem #1 Knowledge Deficit PT Goal 1 Goal / Goal Update [place] with HEP Target Visit 4 PT Goal 2 Goal / Goal Update Report no pain greater than 2/10 for 2 consecutive weeks Target Visit 8 PT Problem 2 PT Problem #2 Impaired Range of Motion PT Goal 1 Goal / Goal Update 1. Achieve 10+ degrees vikki ankle dorsiflexion 2. Demonstrate minimal piriformis restriction bilaterally 3. Improve vikki Hamstring 90/90 length to -30 degrees to reduce posterior pelvic pull and reduce sciatic nerve tension Target Visit 8
--- NOTE | 2024-10-05 11:37 | PTOPEVAL1 ---
Assessment and note entered by Timoteo Almanza, PT Evaluation Information Assessment Status Evaluation Diagnosis Sciatica ICD-10 Condition Codes (PT) Pain in right ankle and joints of right foot M25. 571,Difficulty Walking R26.2 Onset July 2024 Subjective Information Reports that he twisted the right ankle. He has since been having pain in the right leg and sciatica. Sciatica has been off and on for a while . Denies pain with sleeping and pain is increased at the end of the day. Has some pain in the left calf when he wakes up in the morning. Overall wants to improve gait cycle, improve ankle mobility, and reduce sciatic pain symptoms as he prepares for traveling this year. Reported Pain Level Pain Score 2: Self Report Assessment PT Clinical Summary Patient presents with significantly restricted hip and ankle mobilization at this time. Gait deficits noted with decreased terminal stance and lateral trunk lean in stance phase. Patent will benefit form skilled therapy to address mobility deficits and improve functional mobility including gait to maximize functional activity. Plan of Care Interventions Gait Training,Manual Therapy,Neuro Re-education, Therapeutic Activities,Therapeutic Exercise PT Services Indicated Yes Treatment Frequency and 2x/week for 8 visits Duration These treatments will address the objective and functional deficits as defined above. The patient will be advanced safely and appropriately in order for the patient to progress towards his/her prior level of function. Additional exercises will be introduced and as well as a comprehensive home exercise program upon discharge, if needed, ?to ensure carryover of functional gains achieved in the clinic. This treatment plan has been reviewed and agreement upon by the patient.
--- NOTE | 2024-11-08 10:50 | OPREHPOC ---
Outpatient Therapy Plan of Care This is a Multidisciplinary Plan of Care that may contain components documented by all disciplines (PT, OT, and ST.) PT Problem 1 PT Problem #1 Knowledge Deficit PT Goal 1 Goal / Goal Update [place] with HEP 11-08-25 d/c goal met Target Visit 4 Progress Met PT Goal 2 Goal / Goal Update Report no pain greater than 2/10 for 2 consecutive weeks 11-08-25 d/c goal met Target Visit 8 Progress Met PT Problem 2 PT Problem #2 Impaired Range of Motion PT Goal 1 Goal / Goal Update 1. Achieve 10+ degrees vikki ankle dorsiflexion 2. Demonstrate minimal piriformis restriction bilaterally 3. Improve vikki Hamstring 90/90 length to -30 degrees to reduce posterior pelvic pull and reduce sciatic nerve tension 30-25 d/c goals 1,2 met Target Visit 8 Progress Partially Met
--- NOTE | 2024-11-08 10:50 | PTOPDC ---
Assessment and note entered by Anju Perales, PT Assessment Status Discharge Diagnosis Sciatica ICD-10 Condition Codes (PT) Pain in right ankle and joints of right foot M25. 571,Difficulty Walking R26.2 Onset July 2024 Subjective Information doing better; did well on my trip and did not have any problems; doing the exercises at home; doing everything at home. Ready to graduate from therapy. Reported Pain Level Pain Score Self Report Additional Pain Score Comments pain range in the past week: 0-2/10; twinge in R ankle 2/10 at worst Assessment PT Clinical Summary Travis has received 8 PT sessions. Compared to the initial evaluation: pain rating from 0-6/10 to 0-2/10; self rating with LE functional scale rating is the same at 19% limitation in activity level; increase flexibility of hamstrings and piriformis bilateral increase R ankle strength and DF ROM; 2 minute walking test distance of 620', with good gait pattern, no limp on R LE; education completed for HEP. The goals were partially achieved. Discharge PT. He is to continue with his HEP. Plan of Care PT Services Indicated No
== END 2024-11-08 13:46 | disposition home or self-care (01) ==
LOC: ANHPT 10:00
PROVIDERS: PCP Family Medicine; Visit Provider Family Medicine
DX: M25.571 Pain in right ankle and joints of right foot (principal); R26.81 Unsteadiness on feet; M79.18 Myalgia, other site; M25.9 Joint disorder, unspecified; B35.1 Tinea unguium; Z91.81 History of falling
CPT/HCPCS: 97110; 97116; 97140; 97161; 97530

== ENCOUNTER 2024-12-29 09:07 | Outpatient (CLI) | payer MEDICARE, SELFPAY ==
--- NOTE | ~2024-12-29 | XR_ITS ---
XR chest 2V Ordering provider: Ruba Barraza MD History: 69 years Male with . BLADDER CANCER . Comparison: March 06, 2024 FINDINGS: MEDIASTINUM: The cardiac silhouette is not enlarged. LUNGS: No infiltrates, effusions or pneumothorax. OTHER: No free air under the diaphragm. Degenerative the spine. IMPRESSION: No acute cardiopulmonary pathology. No significant change from previous examination. Reviewed, dictated and finalized at location A. IMPRESSION: No acute cardiopulmonary pathology. No significant change from previous examina tion.
== END 2024-12-29 09:08 | disposition home or self-care (01) ==
PROVIDERS: PCP Family Medicine; Visit Provider Urology
DX: C67.9 Malignant neoplasm of bladder, unspecified (principal)
CPT/HCPCS: 71046